=== PATIENT | male | born 1985 | race African-American/Black ===

== ENCOUNTER 2020-02-06 23:52 | Emergency (ER) | payer MEDICAID ==
[~2020-02-06] VITALS: Ht 188 cm; Wt 99.8 kg
[2020-02-07 00:10] VITALS: BP 143/72
--- NOTE | 2020-02-07 00:10 | NUR ---
ED Nurse Note: Pt walked into ED for c/o L arm pain/tingling onset yesterday. Pt states he was moving wood pallets and noticed the pain shortly after. Pt denies any trauma. No open wound or deformity noted. Pt is aaox4, breathing is normal and unlabored. No cough, sob or fever.
[2020-02-07] MEDS ORDERED: IBUPROFEN600 M1 ORAL (00:38)
--- NOTE | 2020-02-07 00:38 | Emergency Room Report ---
History of Present Illness General Chief Complaint: Pain Source: Patient Present Illness [facility] This 34-year-old male who is right-hand dominant. He presents with chief complaint of left arm pain and tingliness. 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 After work he felt some tightness to his elbow and forearm. He also has something in this. His was concerned that maybe something bad at home to come in. Patient denies any trauma. No chest pain. No nausea no vomiting. Nothing made it better. Movement made it worse. 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 COVID-19 Screening: Negative COVID-19 COVID-19 Testing Source: unk Patient History Past Medical History: see triage record, old chart reviewed Past Surgical History: none Pertinent Family History: none Social History: Denies: smoking Immunizations: other Reviewed Nursing Documentation: PMH: Agreed; PSxH: Agreed Review of Systems Eye: Denies: eye pain, blurred vision ENT: Denies: ear pain, nose congestion, throat swelling Respiratory: Denies: cough, shortness of breath Cardiovascular: Denies: chest pain, palpitations Gastrointestinal: Denies: abdominal pain, diarrhea, nausea, vomiting Musculoskeletal: Reports: muscle pain; Denies: back pain, joint pain Skin: Denies: rash Neurological: Denies: headache, numbness Endocrine: Denies: increased thirst, increased urine Hematologic/Lymphatic: Denies: easy bruising All Other Systems: negative except mentioned in HPI Physical Exam Vital Signs Date Time Temp Pulse Resp B/P (MAP) Pulse Ox O2 Delivery O2 Flow Rate FiO2 02/06/20 23:58 99.0 85 18 143/72 (95) 99 Room Air Vitals unremarkable Sp02 EP Interpretation: reviewed, normal General Appearance: well appearing, no apparent distress, alert Head: normocephalic, atraumatic Eyes: bilateral eye PERRL, bilateral eye EOMI ENT: hearing grossly normal, normal pharynx Neck: full range of motion, supple, no meningismus Respiratory: chest non-tender, lungs clear, normal breath sounds Cardiovascular #1: regular rate, rhythm, no murmur Gastrointestinal: normal bowel sounds, non tender, no mass, no organomegaly, no bruit, non-distended Musculoskeletal: back normal, normal range of motion, gait/station normal, other - Left arm: He has tenderness over the brachioradialis muscle. Full range of motion. No deformity. No evidence of any anesthesia. Psychiatric: mood/affect normal Medical Decision Making Diagnostic Impression: Primary Impression: Muscle strain of forearm Qualified Codes: S56.912A - Strain of unspecified muscles, fascia and tendons at forearm level, left arm, initial encounter ER Course This patient presents with soft tissue injury. No evidence of any fracture or dislocation. No evidence of any tear. Last Vital Signs Date Time Temp Pulse Resp B/P (MAP) Pulse Ox O2 Delivery O2 Flow Rate FiO2 02/06/20 23:58 99.0 85 18 143/72 (95) 99 Room Air Status: unchanged Disposition: HOME, SELF-CARE Condition: Stable Scripts Ibuprofen* (MOTRIN*) 600 Mg Tablet 600 MG ORAL Q6H PRN for For Pain, #30 TAB 0 Refills Prov: Mario Montague MD 02/07/20 Additional Instructions: Follow-up with your doctor in 7 days. Ice pack to the area. Return if symptoms worsen. May take ibuprofen for pain. Mario Montague MD Feb 07, 2020 00:38
[2020-02-07 00:45] VITALS: BP 135/80
--- NOTE | 2020-02-07 00:45 | NUR ---
ER DISCHARGE NOTE: Patient is cleared to be discharged per ERMD, pt is aox4, on room air, with stable vital signs. pt was given dc and prescription instructions, pt was able to verbalize understanding, pt id band removed. pt is able to ambulate with steady gait. pt took all belongings.
== END 2020-02-07 00:45 | disposition home or self-care (01) ==
LOC: EMR 02-07 00:37
DX: S56.912A Strain of unspecified muscles, fascia and tendons at forearm level, left arm, initial encounter (principal); X50.0XXA Overexertion from strenuous movement or load, initial encounter; Y93.89 Activity, other specified; Y92.9 Unspecified place or not applicable
CPT/HCPCS: 99281